=== PATIENT | male | born 1930 | race Caucasian/White ===

== ENCOUNTER → 2017-02-01 | Outpatient (CLI) | payer MEDICARE ==
[~2017-02-01] MED LIST: ALDACTONE25 MG PO; ARICEPT10 MG PO; BUMEX1 MG PO; CORDARONE,PACE200 MG PO; COREG25 MG PO; COUMADIN ** IA5 MG PO; COUMADIN5 MG PO; DEMADEX20 M1 PO; FERROUS SULFAT134 MG PO; LEVOTHROID (SY25 MCG PO; LEVOTHROID (SY50 MCG PO; LUTEIN20 MG PO; MAGNESIUM OXID250 MG PO; MULTIVITAMINS1 EAC1 PO; OXYGEN INH; PROTONIX40 MG PO; SENNA LAXATIVE1 EACH PO; TOPROL XL25 MG PO; VITAMIN D1000 UNIT PO; VITAMIN D31000 UNI1 PO; ZAROXOLYN2.5 MG PO; ZESTRIL2.5 MG PO
[2017-02-01 12:17] LABS: ANION GAP 11.7 (10.0-19.0); CALCIUM 8.7 mg/dL (8.5-10.5); CREATININE 1.7 mg/dL (0.6-1.3); POTASSIUM 3.7 mMol/L (3.7-5.1)
== END ==
LOC: LNHI 11:57
PROVIDERS: Physician Assistant
DX: I50.22 Chronic systolic (congestive) heart failure (principal); I48.2 Chronic atrial fibrillation; Z95.810 Presence of automatic (implantable) cardiac defibrillator

== ENCOUNTER 2017-04-01 16:43 | Inpatient (IN) | payer MEDICARE ==
[~2017-04-01] VITALS: Ht 177.8 cm; Wt 76.0 kg
--- NOTE | ~2017-04-01 | PUL ---
PATIENT'S NAME: GUIDO RESENDIZ [facility] AGE: 86 Y [address] ROOM: [address] [address] LOCATION: GPCU ADMIT DATE: 04/01/2017 Pulmonary DISCHARGE DATE: FAMILY PHYSICIAN: Dereje Abbott MD ATTENDING PHYSICIAN: Dereje Abbott NAME OF PROCEDURE: Overnight Pulse Oximetry DATE OF PROCEDURE: April 04 to April 05, 2017 REASON FOR EXAM: Nocturnal hypoxemia RESULTS: The test was performed on supplemental oxygen at 2 liters/minute. The patient had a brief period of time when he was on room air. The recording time and total valid sampling time were 8 hours, 43 minutes, and 12 seconds. The highest pulse was 76, lowest pulse was 66, with a mean pulse of 70. The highest SpO2 was 98%, lowest SpO2 was 88%, with a mean SpO2 of 93.9%. The patient spent 32 seconds with SpO2 less than 89%, representing 0.1% of the total sleep time. The desaturation event index was normal at 2.8. PHYSICIAN INTERPRETATION: The patient does not have evidence of significant nocturnal hypoxia while on supplemental oxygen at 2 liters/minute. MD JAKY SUAREZ/mariluz /[id number] dtt: 04/08/17 0730 , ALISON ONEAL dtd: 04/07/17 1124
--- NOTE | ~2017-04-01 | CON ---
PATIENT'S NAME: GUIDO RESENDIZ [facility] AGE: 86 Y [address] ROOM: [place] [address] LOCATION: GPCU ADMIT DATE: 04/01/2017 Consultation DISCHARGE DATE: FAMILY PHYSICIAN: Dereje Abbott MD ATTENDING PHYSICIAN: Dereje Abbott DATE OF CONSULTATION: 04/01/2017 REFERRING PHYSICIAN: Ilir Emmanuel REQUESTING PHYSICIAN: Dereje Abbott MD. REASON FOR CONSULTATION: Elevated BUN and creatinine and leg edema. HISTORY OF PRESENT ILLNESS: The patient is an 86-year-old white male with a history of chronic congestive heart failure from diastolic dysfunction. He also has a history of stage 4 chronic kidney disease. His creatinine was 1.7 in January 2017, went up to 2.1 on March 31, on April 01 second was 2.25. He gained 20 pounds since November. He was normally on torsemide 20 mg a day. Torsemide dose was increased to 40 mg a day. The patient is also lowered on his lisinopril 2.5 mg a day. He has chronic diastolic dysfunction of the heart. The patient was admitted to the hospital because of his significant leg edema. I have been asked to see him because of his elevated creatinine and edema. ALLERGIES: ALLERGIC TO CEPHALOSPORIN AND MORPHINE. MEDICATIONS: 1. Carvedilol 25 mg twice a day. 2. Aricept 10 mg every day. 3. Lutein 20 mg a day. 4. Magnesium oxide 250 mg every day. 5. Multivitamin once a day. 6. Torsemide 20 mg a day. 7. Warfarin as prescribed. 8. Oxygen 2 L by nasal cannula. 9. Cholecalciferol 2000 units once a day. 10. Synthroid 50 mcg a day. 11. Lisinopril 2.5 mg a day. PAST MEDICAL HISTORY: Stage 4 chronic kidney disease, chronic congestive heart failure from systolic dysfunction, hypothyroidism, hypovitaminosis D, leg edema, depressive illness, PATIENT'S NAME: GUIDO RESENDIZ [facility] AGE: 86 Y [address] ROOM: [place] [address] LOCATION: GPCU ADMIT DATE: 04/01/2017 Consultation DISCHARGE DATE: FAMILY PHYSICIAN: Dereje Abbott MD ATTENDING PHYSICIAN: Dereje Abbott and hypertension. PAST SURGICAL HISTORY: Prostatectomy, tonsillectomy, nasal polypectomy, hernia repair, hemorrhoid surgery, and cystoscopy with fulguration. SOCIAL HISTORY: He lives at home with his . He is . No history of alcohol use. FAMILY HISTORY: No family history of kidney disease or dialysis. REVIEW OF SYSTEMS: GENERAL: He denies any fever, chills, or rigors. HEENT: Denies any sore throat or sinus congestion. CARDIOVASCULAR: Denies any chest pain or dyspnea on exertion. RESPIRATORY: Denies any shortness of breath, cough, or wheezing. GI: Denies any abdominal pain, nausea, or vomiting. : Denies any dysuria or frequency. MUSCULOSKELETAL: No joint pain or swelling. SKIN: Denies any rash or pruritus. IMMUNOLOGIC: Denies any allergies or hay fever. EXTREMITIES: Did note a significant swelling of his lower extremities. PHYSICAL EXAMINATION: GENERAL APPEARANCE: An 86-year-old white male, lying in the hospital bed, not in acute distress. VITAL SIGNS: Temperature 98.3, pulse 71, systolic blood pressure 116 and diastolic 56, and respiratory rate 18. HEENT: Head normocephalic. Pupils are round and equal. Normal eyelids and conjunctivae. Oral cavity clear. Moist mucosa. Trachea central. No thyromegaly. No bruit. HEART: Sounds are audible in all the areas without any gallop or murmur. There is no pericardial rub. Pulses regular in rhythm. LUNGS: Bilaterally clear to auscultation. No intercostal retraction. ABDOMEN: Soft, nontender. Cannot palpate any liver or spleen. EXTREMITIES: He has no clubbing or cyanosis. The patient is 2+ leg edema. SKIN: No sign of vasculitis. LABORATORY DATA: Blood work shows hemoglobin 9.7, hematocrit 28.7, glucose 105, BUN 62, creatinine 2.0, sodium 139, potassium 3.7, chloride 103, bicarb 29, calcium 8.4, albumin 3.0, phosphorus of 3.4, and GFR of 32. ASSESSMENT: PATIENT'S NAME: GUIDO RESENDIZ [facility] AGE: 86 Y [address] ROOM: [place] [address] LOCATION: GPCU ADMIT DATE: 04/01/2017 Consultation DISCHARGE DATE: FAMILY PHYSICIAN: Dereje Abbott MD ATTENDING PHYSICIAN: Dereje Abbott 1. Acute on chronic kidney injury, most likely from decompensated congestive heart failure. His baseline creatinine was 1.7, now it is up to 2.2. 2. Increasing leg edema, probably from decompensated heart failure as well. 3. Chronic diastolic dysfunction of the heart. 4. Hypothyroidism. 5. Dementia. PLAN: I will hold his lisinopril and put him on 2 g sodium restricted diet as well as 1.5 L of oral free water restriction. Put him on Bumex 2 mg IV twice a day and we will monitor his urine output. We will check standing weight every morning and check renal function every day. I would like to thank Dr. Abbott for allowing me to participate in this patient's care. M IMTAIZ MD KEENAN MII/jasl /[id number] CC: Dereje Abbott MD d: 04/02/171953 t: 04/03/17 1129, CONSULTATION REPORT
--- NOTE | ~2017-04-01 | CON ---
PATIENT'S NAME: GUIDO BACA [facility] AGE: 86 Y [address] ROOM: [address] [place], [place] [address] LOCATION: GPCU ADMIT DATE: 04/01/2017 Consultation DISCHARGE DATE: FAMILY PHYSICIAN: Dereje Abbott MD ATTENDING PHYSICIAN: Dereje Abbott DATE OF CONSULTATION: 04/01/2017 REFERRING PHYSICIAN: Ilir Emmanuel Patient of Dr. Mejía. Dear Dr. Mejía: Thank you for asking me to see Mr. Baca, who is an 86-year-old male patient, who is admitted with worsening congestive heart failure with increasing ankle swelling and shortness of breath for the past 2 weeks. He is a fairly active person and he is retired. He usually goes down to the fitness center and does pushups, sit-ups, straight chest, and walks on a treadmill for 30-40 minutes, which he was able to do until 2 months back. Since then, his breathing has been to the point where he is unable to do anything. In February of this year, his LV lead was found to be not functioning, so he went down to [facility] in [place] and they repositioned his lead. Since then, his symptoms have not gotten any better. Currently, he is in functional class III, getting short of breath going up and down flights of stairs. He has noticed worsening ankle swelling and there is no paroxysmal nocturnal dyspnea even though he is mildly orthopneic. There is no chest pain. He denies lightheadedness, dizziness, syncope, presyncope, or palpitations. He has been having ankle swelling for a number of years. The patient has history of hypertension. He denies diabetes, elevated cholesterol, tobacco abuse, or family history of premature coronary artery disease. The patient denies PA. He denies rheumatic fever. He has had congestive heart failure for 8-9 years. His last ejection fraction according to the patient is about 41%. This has not by any means verified yet. His last echo and DUSTY were about 2 years old. There is a history of chronic atrial fibrillation on Coumadin therapy. MEDICATIONS: 1. Carvedilol 25 b.i.d. 2. Aricept 10 mg at bedtime. 3. Lutein 20 mg a day. 4. Magnesium oxide 250 mg a day. 5. Multivitamin once a day. PATIENT'S NAME: GUIDO BACA [facility] AGE: 86 Y [address] ROOM: [place] [address] LOCATION: GPCU ADMIT DATE: 04/01/2017 Consultation DISCHARGE DATE: FAMILY PHYSICIAN: Dereje Abbott MD ATTENDING PHYSICIAN: Dereje Abbott 6. Torsemide 20 mg every morning. 7. Warfarin 5 mg every morning. 8. Oxygen 2 L at bedtime. 9. Vitamin D3 2000 units a day. 10. Levothyroxine 50 mcg a day. 11. Lisinopril 2.5 mg a day. ALLERGIES: CEPHALOSPORIN AND MORPHINE. PAST MEDICAL HISTORY: 1. Anemia of chronic disease. 2. CKD. His creatinine was 1.7 sometime back, but yesterday after increasing his diuretic dosage, it has increased to 2.1 today. 3. Chronic diastolic congestive heart failure. 4. Gout. 5. Hypothyroidism. 6. Myelodysplastic syndrome. 7. History of prostate cancer. 8. Thrombocytopenia. 9. Cystoscopy with fulguration. 10. Hemorrhoid surgery. 11. Hernia repair. 12. Nasal polypectomy. 13. Prostatectomy. 14. Tonsillectomy. SOCIAL HISTORY: The patient is . He denies abusing alcohol. His appetite and weight are stable. Sleep is fair. FAMILY HISTORY: No premature coronary artery disease. REVIEW OF SYSTEMS: A 12-point review of systems reveal the following positives: 1. Allergies. 2. Corrective lenses. 3. History of DVT in the right leg 30 years ago, provoked at that time. 4. Dry cough. PHYSICAL EXAMINATION: GENERAL: The patient is now in no acute distress. VITAL SIGNS: Blood pressure is 110/70, heart rate is 70 and paced. The underlying rhythm is atrial fibrillation. PATIENT'S NAME: GUIDO BACA [facility] AGE: 86 Y [address] ROOM: [place] [address] LOCATION: GPCU ADMIT DATE: 04/01/2017 Consultation DISCHARGE DATE: FAMILY PHYSICIAN: Dereje Abbott MD ATTENDING PHYSICIAN: Dereje Abbott VITAL SIGNS: Respirations are 18, afebrile. HEENT: Normal. NECK: Supple with no JVD, thyromegaly, lymphadenopathy, or carotid bruit. PMI is not well located. HEART: First and second heart sounds are regular. There are no added sounds or murmurs. He has fairly coarse crackles bilaterally in his chest. ABDOMEN: Soft. EXTREMITIES: Reveal 2+ edema. He has moderate pulmonary hypertension by cardiac catheterization 2 years ago. ASSESSMENT: 1. History of chronic diastolic congestive heart failure. 2. Permanent BiV pacemaker placement. 3. Congestive heart failure, which is chronic. 4. Chronic atrial fibrillation. 5. Worsening shortness of breath and edema. 6. Coarse crackles in his lungs, all the way up to the mid lung alvarez. 7. Chronic kidney disease with a creatinine getting worse. 8. Edema and shortness of breath that are mentioned above. 9. Last catheterization in 2014 revealed minimal coronary artery disease. 10. Moderate pulmonary hypertension with pulmonary pressures in the 60s in the 2015 right heart catheterization. RECOMMENDATIONS: 1. We will check his chest x-ray. 2. We will do a pacemaker check. 3. Further management will be based on the findings and also get an echo before making final decisions about his medications. The patient has seen Dr. Correa and she will assume care in the morning hopefully. Again, I appreciate this opportunity to participate in the care of Mr. Baca. MD BRANDEN SULTANA/vania /[id number] d: 04/02/17 0056 t: 04/02/17 1838, CONSULTATION REPORT
--- NOTE | ~2017-04-01 | DS ---
PATIENT'S NAME: GUIDO RESENDIZ [facility] AGE: 86 Y [address] ROOM: [place] [address] LOCATION: GPCU ADMIT DATE: 04/01/2017 Discharge Summary DISCHARGE DATE: 04/07/2017 FAMILY PHYSICIAN: Jay Abbott MD ATTENDING PHYSICIAN: Jay Abbott DISCHARGE DIAGNOSES: 1. Qvfnj-qn-yomkcoh congestive heart failure, systolic. 2. Mjcow-lw-ypfwxkf renal failure, stage 4. 3. Hypertension. 4. Anemia. 5. Hypokalemia. 6. Nocturnal hypoxia. CONSULTS DURING ADMISSION: 1. Cardiology. 2. PT, OT. 3. Nephrology. PROCEDURES DURING ADMISSION: None. HOSPITAL COURSE: The patient is an 86-year-old male with oamfi-ax-knrixfs heart failure with kqizw-sy-zjnexgw renal failure, who was admitted to the hospital. The patient was started on Bumex drip. He was diuresed throughout his hospital stay. The patient's edema and breathing improved. The patient had a trending pulse oximetry done overnight and he maintained with 2 L nasal cannula oxygen. The patient had his potassium replaced. Throughout his hospital stay, his blood pressure remained stable as did his anemia. Upon discharge, his creatinine was 1.8. DISCHARGE CONDITION: Stable. DISPOSITION: Home. DISCHARGE MEDICATIONS: Please see list. DISCHARGE INSTRUCTIONS: I would like to recheck INR on April 12. The patient is to follow up with Cardiology and Renal as directed. The patient is to follow up with Dr. Abbott in approximately 2 weeks. JAY ABBOTT MD PATIENT'S NAME: GUIDO RESENDIZ [facility] AGE: 86 Y [address] ROOM: [place] [address] LOCATION: GPCU ADMIT DATE: 04/01/2017 Discharge Summary DISCHARGE DATE: 04/07/2017 FAMILY PHYSICIAN: Jay Abbott MD ATTENDING PHYSICIAN: Jay Abbott/vaina /[id number] d: 04/08/1714 t: 04/13/17 1609, DISCHARGE SUMMARY
[~2017-04-01 16:43] MED LIST changes: -BUMEX1 MG PO; -CORDARONE,PACE200 MG PO; -COUMADIN ** IA5 MG PO; -SENNA LAXATIVE1 EACH PO; -TOPROL XL25 MG PO; -VITAMIN D1000 UNIT PO; -ZAROXOLYN2.5 MG PO; -ZESTRIL2.5 MG PO
[2017-04-01] MEDS ORDERED: ZESTRIL2.5 MG PO (17:22)
[2017-04-01] MEDS ORDERED: VITAMIN D1000 UNIT PO (17:24)
[2017-04-02 03:43] LABS: BASOPHIL % 0.3 %; EOSINOPHIL # 0.2 K/uL (0.0-0.5); EOSINOPHIL % 3.8 %; HEMATOCRIT 28.7 % (33.0-50.0); HEMOGLOBIN 9.7 g/dL (11.0-16.0); IMMATURE GRANULOCYTE % 0.5 %; LYMPHOCYTE # 0.8 K/uL (0.8-4.0); LYMPHOCYTE % 20.3 %; MCH 32.4 pg (27.0-34.0); MCHC 33.8 gm/dL (32.0-36.5); MONOCYTE # 0.6 K/uL (0.0-1.0); MONOCYTE % 15.2 %; MPV 10.4 fl (9.4-12.4); NEUTROPHIL # (ANC) 2.4 K/uL (1.4-9.0); NEUTROPHIL % 59.9 %; NRBC % 0 /100WBC (0-0.00); PLATELET COUNT 93 K/uL (150-450); RBC 2.99 M/uL (3.50-5.50); RDW-CV 13.6 % (11.9-14.6)
[2017-04-02 03:56] LABS: INR - (THERAPEUTIC) 2.93 (0.92-1.07); PROTIME 31.1 SECONDS (9.8-11.4)
[2017-04-02 04:10] LABS: ANION GAP 10.7 (10.0-19.0); CALCIUM 8.4 mg/dL (8.5-10.5); PHOSPHORUS 3.4 mg/dL (2.5-4.9); POTASSIUM 3.7 mMol/L (3.7-5.1)
[2017-04-02] MEDS ORDERED: COUMADIN ** IA5 MG PO (08:19)
[2017-04-03 05:34] LABS: BASOPHIL % 0.2 %; EOSINOPHIL % 0.3 %; HEMATOCRIT 30.6 % (33.0-50.0); HEMOGLOBIN 10.3 g/dL (11.0-16.0); IMMATURE GRANULOCYTE % 0.3 %; LYMPHOCYTE # 0.8 K/uL (0.8-4.0); LYMPHOCYTE % 12.6 %; MCH 32.2 pg (27.0-34.0); MCHC 33.7 gm/dL (32.0-36.5); MCV 95.6 fl (83.0-98.0); MONOCYTE # 0.9 K/uL (0.0-1.0); MONOCYTE % 15.4 %; MPV 10.7 fl (9.4-12.4); NEUTROPHIL # (ANC) 4.3 K/uL (1.4-9.0); NEUTROPHIL % 71.2 %; NRBC % 0 /100WBC (0-0.00); PLATELET COUNT 94 K/uL (150-450); RDW-CV 13.6 % (11.9-14.6); WBC 6.1 K/uL (4.0-11.0)
[2017-04-03 05:45] LABS: ALBUMIN 3.1 gm/dL (3.5-5.0); ANION GAP 12.4 (10.0-19.0); CALCIUM 8.3 mg/dL (8.5-10.5); PHOSPHORUS 3.2 mg/dL (2.5-4.9); POTASSIUM 3.4 mMol/L (3.7-5.1)
[2017-04-03 05:49] LABS: INR - (THERAPEUTIC) 2.41 (0.92-1.07); PROTIME 25.5 SECONDS (9.8-11.4)
[2017-04-04 04:29] LABS: BASOPHIL % 0.3 %; EOSINOPHIL % 0.3 %; HEMATOCRIT 28.4 % (33.0-50.0); HEMOGLOBIN 9.5 g/dL (11.0-16.0); IMMATURE GRANULOCYTE % 0.6 %; LYMPHOCYTE # 0.8 K/uL (0.8-4.0); LYMPHOCYTE % 11.7 %; MCH 32.3 pg (27.0-34.0); MCHC 33.5 gm/dL (32.0-36.5); MCV 96.6 fl (83.0-98.0); MONOCYTE # 0.8 K/uL (0.0-1.0); MONOCYTE % 10.9 %; MPV 10.4 fl (9.4-12.4); NEUTROPHIL # (ANC) 5.3 K/uL (1.4-9.0); NEUTROPHIL % 76.2 %; NRBC % 0 /100WBC (0-0.00); PLATELET COUNT 91 K/uL (150-450); RBC 2.94 M/uL (3.50-5.50); RDW-CV 13.8 % (11.9-14.6)
[2017-04-04 04:37] LABS: INR - (THERAPEUTIC) 2.54 (0.92-1.07); PROTIME 26.9 SECONDS (9.8-11.4)
[2017-04-04 04:45] LABS: ALBUMIN 2.6 gm/dL (3.5-5.0); ANION GAP 10.4 (10.0-19.0); CREATININE 2.1 mg/dL (0.6-1.3); PHOSPHORUS 3.1 mg/dL (2.5-4.9); POTASSIUM 3.4 mMol/L (3.7-5.1)
[2017-04-04 10:26] LABS: BILIRUBIN URINE NEGATIVE (NEGATIVE); BLOOD URINE 250 /UL (NEGATIVE); COLOR URINE RED (YELLOW); GLUCOSE URINE NEGATIVE (NEGATIVE); KETONE URINE NEGATIVE (NEGATIVE); LEUKOCYTES URINE 100 /UL (NEGATIVE); NITRITE URINE NEGATIVE (NEGATIVE); PROTEIN URINE 30 mg/dL (NEGATIVE); TURBIDITY URINE 1+ (CLEAR); UROBILINOGEN URINE NORMAL (NORMAL)
[2017-04-04 10:33] LABS: RBC URINE PACKED FIELD #/HPF (NEGATIVE); WBC URINE 0-2 #/HPF (NEGATIVE)
[2017-04-04 10:34] LABS: BACTERIA URINE NEGATIVE (NEGATIVE); EPITHELIAL URINE NEGATIVE #/HPF (NEGATIVE)
[2017-04-05 04:43] LABS: BASOPHIL % 0.3 %; EOSINOPHIL % 0.4 %; HEMATOCRIT 28.7 % (33.0-50.0); HEMOGLOBIN 9.3 g/dL (11.0-16.0); IMMATURE GRANULOCYTE % 0.6 %; LYMPHOCYTE # 0.9 K/uL (0.8-4.0); LYMPHOCYTE % 12.6 %; MCH 31.4 pg (27.0-34.0); MCHC 32.4 gm/dL (32.0-36.5); MONOCYTE # 0.8 K/uL (0.0-1.0); MONOCYTE % 10.5 %; MPV 10.1 fl (9.4-12.4); NEUTROPHIL # (ANC) 5.4 K/uL (1.4-9.0); NEUTROPHIL % 75.6 %; NRBC % 0 /100WBC (0-0.00); PLATELET COUNT 104 K/uL (150-450); RBC 2.96 M/uL (3.50-5.50); RDW-CV 13.9 % (11.9-14.6); WBC 7.2 K/uL (4.0-11.0)
[2017-04-05 04:54] LABS: INR - (THERAPEUTIC) 2.86 (0.92-1.07); PROTIME 30.4 SECONDS (9.8-11.4)
[2017-04-05 05:01] LABS: ALBUMIN 2.6 gm/dL (3.5-5.0); ANION GAP 10.4 (10.0-19.0); CALCIUM 8.3 mg/dL (8.5-10.5); CREATININE 1.9 mg/dL (0.6-1.3); PHOSPHORUS 3.8 mg/dL (2.5-4.9); POTASSIUM 3.4 mMol/L (3.7-5.1)
[2017-04-06 04:47] LABS: BASOPHIL % 0.2 %; EOSINOPHIL # 0.1 K/uL (0.0-0.5); EOSINOPHIL % 1.2 %; HEMATOCRIT 29.3 % (33.0-50.0); HEMOGLOBIN 9.6 g/dL (11.0-16.0); IMMATURE GRANULOCYTE % 0.3 %; LYMPHOCYTE # 0.8 K/uL (0.8-4.0); LYMPHOCYTE % 13.7 %; MCH 31.9 pg (27.0-34.0); MCHC 32.8 gm/dL (32.0-36.5); MCV 97.3 fl (83.0-98.0); MONOCYTE # 0.7 K/uL (0.0-1.0); MONOCYTE % 11.4 %; MPV 10.4 fl (9.4-12.4); NEUTROPHIL # (ANC) 4.2 K/uL (1.4-9.0); NEUTROPHIL % 73.2 %; NRBC % 0 /100WBC (0-0.00); PLATELET COUNT 114 K/uL (150-450); RBC 3.01 M/uL (3.50-5.50); RDW-CV 13.8 % (11.9-14.6); WBC 5.8 K/uL (4.0-11.0)
[2017-04-06 05:08] LABS: ALBUMIN 2.6 gm/dL (3.5-5.0); ANION GAP 9.4 (10.0-19.0); CALCIUM 8.1 mg/dL (8.5-10.5); CREATININE 1.9 mg/dL (0.6-1.3); PHOSPHORUS 3.1 mg/dL (2.5-4.9); POTASSIUM 3.4 mMol/L (3.7-5.1)
[2017-04-06 05:11] LABS: INR - (THERAPEUTIC) 3.83 (0.92-1.07); PROTIME 40.8 SECONDS (9.8-11.4)
[2017-04-07 03:41] LABS: BASOPHIL % 0.2 %; EOSINOPHIL # 0.1 K/uL (0.0-0.5); EOSINOPHIL % 1.1 %; HEMATOCRIT 30.1 % (33.0-50.0); HEMOGLOBIN 9.9 g/dL (11.0-16.0); IMMATURE GRANULOCYTE % 0.6 %; LYMPHOCYTE # 0.8 K/uL (0.8-4.0); LYMPHOCYTE % 14.5 %; MCH 31.6 pg (27.0-34.0); MCHC 32.9 gm/dL (32.0-36.5); MCV 96.2 fl (83.0-98.0); MONOCYTE # 0.7 K/uL (0.0-1.0); MONOCYTE % 14.1 %; MPV 10.1 fl (9.4-12.4); NEUTROPHIL # (ANC) 3.6 K/uL (1.4-9.0); NEUTROPHIL % 69.5 %; NRBC % 0 /100WBC (0-0.00); PLATELET COUNT 132 K/uL (150-450); RBC 3.13 M/uL (3.50-5.50); RDW-CV 13.6 % (11.9-14.6); WBC 5.2 K/uL (4.0-11.0)
[2017-04-07 03:57] LABS: INR - (THERAPEUTIC) 3.81 (0.92-1.07); PROTIME 40.5 SECONDS (9.8-11.4)
[2017-04-07 04:07] LABS: ALBUMIN 2.7 gm/dL (3.5-5.0); ANION GAP 10.6 (10.0-19.0); CALCIUM 8.3 mg/dL (8.5-10.5); CREATININE 1.8 mg/dL (0.6-1.3); PHOSPHORUS 3.2 mg/dL (2.5-4.9); POTASSIUM 3.6 mMol/L (3.7-5.1)
[2017-04-07] MEDS ORDERED: BUMEX1 MG PO (11:41)
== END 2017-04-07 13:55 | disposition disaster alternative care site (69) | DRG 291 ==
LOC: GPCU 16:43
PROVIDERS: Internal Medicine; Internal Medicine Nephrology; ADMIT Family Medicine
DX: I13.0 Hypertensive heart and chronic kidney disease with heart failure and stage 1 through stage 4 chronic kidney disease, or unspecified chronic kidney disease (principal); I50.23 Acute on chronic systolic (congestive) heart failure; N18.4 Chronic kidney disease, stage 4 (severe); D69.6 Thrombocytopenia, unspecified; N17.9 Acute kidney failure, unspecified; I48.2 Chronic atrial fibrillation; F03.90 Unspecified dementia, unspecified severity, without behavioral disturbance, psychotic disturbance, mood disturbance, and anxiety; I25.5 Ischemic cardiomyopathy; N39.0 Urinary tract infection, site not specified; I25.10 Atherosclerotic heart disease of native coronary artery without angina pectoris; I50.32 Chronic diastolic (congestive) heart failure; D63.1 Anemia in chronic kidney disease; E87.6 Hypokalemia; G47.33 Obstructive sleep apnea (adult) (pediatric); E03.4 Atrophy of thyroid (acquired); Z79.01 Long term (current) use of anticoagulants; Z86.010 Personal history of colon polyps; Z95.0 Presence of cardiac pacemaker; Z85.46 Personal history of malignant neoplasm of prostate; Z86.718 Personal history of other venous thrombosis and embolism

== ENCOUNTER 2017-04-30 17:46 | Inpatient (IN) | payer MEDICARE ==
[~2017-04-30] VITALS: Ht 177.8 cm; Wt 74.8 kg
--- NOTE | ~2017-04-30 | CON ---
PATIENT'S NAME: GUIDO RESENDIZ [facility] AGE: 86 Y [address] ROOM: [address] [place] [id number] LOCATION: GICU ADMIT DATE: 05/03/2017 Consultation DISCHARGE DATE: FAMILY PHYSICIAN: Dereje Abbott MD ATTENDING PHYSICIAN: GUCCI MESSINA DATE OF CONSULTATION: 05/01/2017 REFERRING PHYSICIAN: Ilir Emmanuel REFERRING PHYSICIAN: Dereje Abbott MD / Hyun Spears MD REASON FOR CONSULTATION: CKD stage 3, admitted with decompensated heart failure and fluid overload. HISTORY OF PRESENT ILLNESS: An 86-year-old male with history of chronic congestive heart failure from diastolic and systolic dysfunction with recent admission to [place] with decompensation, presented with similar complaints with shortness of breath especially on exertion, which has worsened over the last few days along with significant dependent edema which has also gotten worse over the last few days. His body weight has went up from 167 pounds and last discharged to 183 pounds on admission, which has improved somewhat to 177 pounds today. Creatinine in January was 1.5 which went up to 2.5 during the last hospital admission before improving back to 1.8-1.9 range. He was in that range on admission. Today on dialysis, his creatinine improved somewhat further to 1.5 range. He has significantly elevated ProBNP, which was 15,000 on admission, went down to 13,000 today. The patient, although walking up the hallway, complained of less shortness of breath, but still continues to have significant lower extremity edema and some presacral edema. He also has decreased air entry in bilateral bases along with few crackles in lungs. He claims that he watches his diet and he watches his salt and water intake. However, as mentioned above, his body weight has been significantly worse than before. Notably, he also has some diarrhea for the last few days which is improving since hospital admission. Since hospitalization for strict intake and output, the patient has a Chaudhry catheter placed since last night. The patient started to have some hematuria, however, slowly clearing up the urine in the Chaudhry catheter tube is much more clearer than what is in the bag. The patient has good urine output for now. REVIEW OF SYSTEMS: GENERAL: No fever. No chills or rigor. HEENT: No sore throat. No sinus congestion. CVS: No chest pain, but significant shortness of breath, significant lower extremity edema which is getting worse for the last few days. RESPIRATORY: No cough, but shortness of breath on exertion. GENITOURINARY: No pain with urination. No increased frequency. No nocturia. GASTROINTESTINAL: No abdominal pain. No abdominal distention. No nausea or vomiting. NEUROLOGIC: No weakness. No seizures. SKIN: No rash. No itching. ALLERGIES: No seasonal allergy. No hayfever. ENDOCRINE: No heat intolerance. No cold intolerance. PSYCHIATRIC: No sadness. No crying spells. No history of panic attack.PATIENT'S NAME: GUIDO RESENDIZ [facility] AGE: 86 Y [address] ROOM: [address] [place], [place] [address] LOCATION: [facility] ADMIT DATE: 05/03/2017 Consultation DISCHARGE DATE: FAMILY PHYSICIAN: Dereje Abbott MD ATTENDING PHYSICIAN: GUCCI MESSINA PAST MEDICAL HISTORY: Combined systolic and diastolic heart failure. Ejection fraction 40% with diastolic dysfunction, atrial fibrillation on Coumadin, hypothyroidism, CKD stage 3-4, prostate cancer status post prostatectomy, hypertension status post biventricular AICD implanted in February 2017, nonobstructive coronary artery disease on most recent cardiac catheterization. PAST SURGICAL HISTORY: 1. Prostatectomy. 2. Pacemaker and AICD implantation. SOCIAL HISTORY: Denies any smoking, alcohol, or illicit drug use. Lives with his . FAMILY HISTORY: Mother from liver cancer at old age. Father had some kind of heart problem that he could not remember. ALLERGIES: PANTOPRAZOLE, CEPHALOSPORIN, MORPHINE, IODINE, AND BETADINE. HOME MEDICATIONS: 1. Coreg 25 mg p.o. b.i.d. 2. Aricept 10 mg p.o. at bedtime. 3. Lutein 20 mg p.o. Wednesday, Wednesday, and Wednesday. 4. Magnesium oxide 250 mg p.o. in the morning. 5. Multivitamin one tablet p.o. daily. 6. Warfarin sodium 5 mg p.o. 5 days a week and 7.5 mg 2 days a week. 7. Cholecalciferol 500 units p.o. b.i.d. 8. Levothyroxine 50 mcg p.o. daily. 9. Bumex 2 mg p.o. daily. 10. Metolazone 2.5 mg p.o. daily. PHYSICAL EXAMINATION: VITAL SIGNS: Blood pressure is 130/50, pulse 70, respiratory rate 14 to 16. Currently afebrile, saturating at 92% to 94% on room air. GENERAL: Not in apparent distress. HEAD: Moist mucous membranes. Bilateral PERRLA, EOMI. NECK: No JVD, thyromegaly or lymphadenopathy. RESPIRATORY: Decreased breath sounds at bilateral bases with few crackles. CVS: S1-S2 positive. Irregular rate and rhythm. CHEST: Bilateral air entry equal. No wheeze or rales. ABDOMEN: Soft, nontender, nondistended. Bowel sounds present. EXTREMITIES: Peripheral pulse positive, 2 to 3+ peripheral edema. Sacral edema positive. MUSCULOSKELETAL: No limitation of range of motion. SKIN: No pallor, cyanosis, icterus. [employer]: Alert and oriented x3. No gross findings.PATIENT'S NAME: GUIDO RESENDIZ [facility] AGE: 86 Y [address] ROOM: [place] [address] LOCATION: [facility] ADMIT DATE: 05/03/2017 Consultation DISCHARGE DATE: FAMILY PHYSICIAN: Dereje Abbott MD ATTENDING PHYSICIAN: GUCCI MESSINA LABORATORY DATA: ProBNP 13,065. CBC: Hemoglobin 9, WBC 3.8, and platelets 96. Chemistry: Serum sodium was 134 on admission, now is 136; potassium 2.9 on admission, now 2.8; chloride 88 on admission, now 92; bicarbonate 25 on admission, now 38; BUN 48 on admission, now 45; creatinine 1.7 on admission, now 1.5; glucose 190 on admission, now 88; calcium 8.3 on admission, now 8.2. Total protein 7.4, albumin 3.1, magnesium 2.3, INR 2.4. Urinalysis: Specific gravity 1.005, pH 7, blood 50, wbc negative, 20 to 50 rbc's, 0 to 2 epithelial cells, negative for bacteria, negative for protein, negative for glucose and ketone. ASSESSMENT AND PLAN: 1. Decompensated combined heart failure with fluid overload. Currently on Bumex 2 mg IV b.i.d. We will continue that. Hold metolazone for now in context of hyponatremia. We will restart it later. The patient will be put on 1.2 L fluid restriction per day. Daily standing weight and strict intake and output. We will monitor the renal panel closely with daily renal panel. Cardiology is on board. 2. Chronic atrial fibrillation. Currently rate controlled and on long-term anticoagulation. INR is in the therapeutic range. Defer further to primary team and Cardiology. 3. Hypervolemic hyponatremia, improving with diuresis. So, we will hold back metolazone for now. May restart it at a later date. 4. Hypokalemia possibly diuretic induced, getting 40 mEq p.o. today and we will repeat labs afterwards and we may need to give further potassium supplementation in the future. 5. Mild hematuria possibly Chaudhry related/traumatic insertion in which she is improving now, has minimal clots, good urine output for now. Monitor for now. No need for Urology consultation at this point. However, if urine output drops, we need to flush the Chaudhry immediately and may call Urology consultation for CBI. Thank you for allowing me to participate in this patient's care. We will closely monitor the patient's progress along with you. DELGADO ALLIE URIBE MD /modl /[id number] CC: Hyun Spears MD d: 05/01/17 1716 t: 05/05/17 1356, CONSULTATION REPORT
--- NOTE | ~2017-04-30 | DS ---
PATIENT'S NAME: GUIDO RESENDIZ [facility] AGE: 86 Y [address] ROOM: [place] [address] LOCATION: GPCU ADMIT DATE: 05/03/2017 Discharge Summary DISCHARGE DATE: 05/10/2017 FAMILY PHYSICIAN: Dereje Abbott MD ATTENDING PHYSICIAN: Angelita To DISCHARGE DIAGNOSES: 1. Acute hypoxic respiratory failure. 2. Acute on chronic combined diastolic and systolic heart failure. 3. Acute on chronic kidney disease level 3. 4. Pulseless electrical activity with cardiac arrest, status post cardiopulmonary resuscitation code. 5. Chronic atrial fibrillation. 6. Subtherapeutic INR. 7. Anemia of chronic disease. 8. Essential hypertension. 9. Hypothyroidism. 10. Bilateral pleural effusions. PROCEDURES: 1. He had an IJ catheter placed in case he needed dialysis on the right side. 2. He had bilateral pleural taps for pleural effusion. 3. He had CPR with resuscitation. REASON FOR ADMISSION: The patient was admitted with increasing shortness of breath, fatigue, hypoxia. It was surely after admission that he coded him and was resuscitated. LABORATORY DATA: Last sodium 139 with potassium 3.6. His potassium went as low as 3, but has rebounded. Blood sugars were benign. Last creatinine was 3.1 with a BUN of 78, down from 83. Creatinine went as high as 3.6, but again has improved. Albumin was low at 2.8. The calcium remained normal at 8.7. Liver function testing was normal. ProBNP on May 01, 2017, was 13,065. BNP was 189. B12 and folate were both therapeutic and supratherapeutic respectively. TSH was elevated slightly at 5.22 in September, it was still elevated at 4.27 on April 30, 2017. Last white count was 5.1 with hemoglobin of 9 and platelets of 138. His MCV was normal. He had a low hemoglobin of 8.3, but was stable at 9 since then. X-RAYS: His cardiac silhouette is chronically enlarged. His bilateral effusion on the right was markedly decreased. After tap, the left recurred, but clinically, he has been much better since the tap. DISCHARGE MEDICATIONS: Per nursing med recon form. PATIENT'S NAME: GUIDO RESENDIZ [facility] AGE: 86 Y [address] ROOM: [address] [address] LOCATION: GPCU ADMIT DATE: 05/03/2017 Discharge Summary DISCHARGE DATE: 05/10/2017 FAMILY PHYSICIAN: Dereje Abbott MD ATTENDING PHYSICIAN: Angelita To DIET: Low-sodium with 1500 mL fluid restriction. He is to weigh himself every day and if he goes up more than 3 pounds, he is to get in touch with Cardiology immediately and I am sure he will be instructed to double his diuretic at that point. ACTIVITIES: As tolerated. FOLLOWUP: With Cardiology in [address] Matamoros at Dr. Matamoros's discretion for Nephrology. Discharge took greater than 30 minutes and reference is made to my note. MD SHELTON WOOD/modl /[id number] d: 05/11/17201 t: 05/11/172120, DISCHARGE SUMMARY
--- NOTE | ~2017-04-30 | OR ---
PATIENT'S NAME: GUIDO BACA [facility] AGE: 86 Y [address] ROOM: [place] [address] LOCATION: GICU ADMIT DATE: 05/03/2017 OR/Procedure Report DISCHARGE DATE: FAMILY PHYSICIAN: Dereje Abbott MD ATTENDING PHYSICIAN: GUCCI MESSINA SURGEON: Jeremiah Bolton DO SENIOR SOURCING MANAGER: DATE OF PROCEDURE: 05/03/2017 REFERRING PHYSICIAN: Geeta Nobles MD. PREOPERATIVE DIAGNOSIS: Acute renal failure with need for hemodialysis. POSTOPERATIVE DIAGNOSIS: Acute renal failure with need for hemodialysis. PROCEDURE: Insertion of right internal jugular vein temporary hemodialysis catheter. BRIEF HISTORY: Mr. Baca is an 86-year-old white male with the above-noted diagnosis. DESCRIPTION OF PROCEDURE: Informed consent has been obtained. The right internal jugular vein was identified with ultrasound and marked. This bernice was then sterilely prepped and draped. The patient was in a supine position. The internal jugular vein was accessed without difficulty after appropriately anesthetizing area 1% lidocaine. A guidewire fed without resistance. A stab incision was made at the base of the needle, and the needle was withdrawn. Two soft tissue dilators were placed serially over the guidewire and removed and then the triple-lumen temporary hemodialysis catheter was placed over the guidewire, and the guidewire was removed. Each lumen aspirated easily for dark venous blood and was then flushed with sterile saline. The 2 dialysis lumens were then locked with heparin. It was secured into position with a 2-0 nylon and a sterile dressing was applied. A chest x-ray is pending for placement. JEREMIAH BOLTON DO MCB/modl /[id number] d: 05/03/177 t: 05/04/17 0313, OPERATIVE SUMMARY
--- NOTE | ~2017-04-30 | ECHO ---
Transthoracic Echocardiography Report (TTE) Demographics Patient Name GUIDO RESENDIZ Date of Study 05/01/2017 Patient Number [id number] Visit Number [id number] Date of 1930 Room Number G6324 Gender Male Number Age 86 year(s) Referring Milena Roth Playback Operator Sherie Murillo RVT, Physician RDCS Physician Interpreting [place] Angelita Wax Pourer Physician MD Alesia Gtz MD Supervising Ordering [place] Angelita MD/MLP Physician Nurse Stress Engine Repairer Production Conclusions Summary The estimated left ventricular ejection fraction is 35%. Mild concentric left ventricular hypertrophy. Diastolic assessment reveals Grade III restrictive diastolic dysfunction. The interventricular septum is flattened which is consistent with right ventricular pressure / and or volume overload. Moderately dilated right ventricle. Mildly reduced right ventricular function. The left atrium is severely dilated. The right atrium is severely dilated. Dilated IVC with poor inspiratory collapse consistent with elevated RA pressure. Mild thickening of the mitral valve leaflets. Mild mitral regurgitation by color Doppler. Severe tricuspid regurgitation by color Doppler. There is severe pulmonary hypertension. The pulmonary pressure (RVSP) is 72 mmHg. Moderate pulmonic valve regurgitation by color Doppler. Procedure Type of Study TTE procedure:2D Echocardiogram. Procedure Date Date: 05/01/2017 Start: 06:24 AM Study Location: Inpatient Portable Technical Quality: Good visualization Indications:CHF and Shortness of breath. Appropriate Use Criteria: 8 Patient Status: Routine Rhythm: Paced HR: 71 bpm BP: 117/56 mmHg Allergies - Morphine. - Morphine. - Morphine:(severe hypotension). M-Mode/2D Measurements LV Diastolic Dimension: 5.86 cm LV Systolic Dimension: 4.99 cm LV Septum Diastolic: 1.31 cm LV PW Diastolic: 1.12 cm AO Root Dimension: 3.2 cm Cardiac Output: 2.59 l/min AV Cusp Separation: 2.2 cm RV Diastolic Dimension: 4.73 cm LA volume: 187 ml LVOT: 2 cm RV Base: 5.05 cm LVOT VTI: 11.6 cm RV Mid: 2.78 cm LV Stroke volume: 36.42 ml TAPSE: 1.63 cm TDI-S': 11.1 cm/s Doppler Measurements AV Peak Velocity: 1.01 m/s MV Peak E-Wave: 0.77 m/s AV Peak Gradient: 4.08 mmHg MV Peak A-Wave: 0.2 m/s AV Mean Gradient: 2 mmHg MV E/A Ratio: 3.87 LVOT Peak Velocity: 0.54 m/s MV P1/2t: 67 msec TR Gradient:51.55 mmHg PV Peak Velocity: 0.68 m/s Estimated RAP:20 mmHg PV Peak Gradient: 1.86 mmHg Estimated RVSP: 72 mmHg Estimated PASP: 71.55 mmHg E' Septal Velocity: 0.09 m/s A' Septal Velocity: 0.19 m/s E' Lateral Velocity: 0.09 m/s A' Lateral Velocity: 0.05 m/s Findings Left Ventricle Mild concentric left ventricular hypertrophy. Diastolic assessment reveals Grade III restrictive diastolic dysfunction. The interventricular septum is flattened which is consistent with right ventricular pressure / and or volume overload. The left ventricle is borderline dilated . Right Ventricle Moderately dilated right ventricle. Mildly reduced right ventricular function. Device lead noted in the right ventricle. Left Atrium The left atrium is severely dilated. There is no evidence of patent foramen ovale or atrial septal defect by color Doppler. Right Atrium The right atrium is severely dilated. Dilated IVC with poor inspiratory collapse consistent with elevated RA pressure. Mitral Valve Mild thickening of the mitral valve leaflets. Mild mitral regurgitation by color Doppler. Borderline prolapse of the mitral valve. Aortic Valve The aortic valve is mildly sclerotic. There is trivial aortic regurgitation by color Doppler. Tricuspid Valve Severe tricuspid regurgitation by color Doppler. There is severe pulmonary hypertension. The pulmonary pressure (RVSP) is 72 mmHg. Pulmonic Valve Moderate pulmonic valve regurgitation by color Doppler. Pericardial Effusion No evidence of pericardial effusion. Miscellaneous Visualized portions of the aortic root and ascending aorta appear normal in size. IVC is severely dilated. Systolic reversal of flow in the hepatic veins suggests severe tricuspid regurgitation. Pleural Effusion No evidence of pleural effusion. Contractility Score LV regional wall motion:(0-Non visualized 1-Normal 2-Hypokinesis 3-Akinesis 4-Dyskinesis 5-Aneurysm) Signature dtt: Jeane Dumas dtd: 05/01/17 0624 Physician Self Edit
--- NOTE | ~2017-04-30 | HP ---
PATIENT'S NAME: GUIDO RESENDIZ [facility] AGE: 86 Y [address] ROOM: G6324 [place], [place] [address] LOCATION: GPCU ADMIT DATE: 04/30/2017 History & Physical DISCHARGE DATE: FAMILY PHYSICIAN: Dereje Abbott MD ATTENDING PHYSICIAN: GUCCI MESSINA DATE OF SERVICE: CHIEF COMPLAINT: Worsening bilateral lower extremity edema and chronic exertional dyspnea. HISTORY OF PRESENT ILLNESS: This is an 86-year-old, male who says that he chronically has edema in both lower extremities as well as exertional dyspnea. He says that his exertional dyspnea has not worsened that much, but his leg edema in both lower extremities has gotten worse in the last few days. He has also gained weight at home. He says that he watches diet and takes medication as directed and very compliant, but he is still gaining weight. He says he also watches oral intake of fluids as well. On April 07, 2017, his weight was 167 pounds and today is 183 pounds. In addition, he also complains of difficulty urinating in the last few days but worse today, but he denies any dysuria or hematuria. He has a history of prostate cancer, status post prostatectomy in the past. He does complain of some loose stools, just today, about 4-5 episodes. He denies any chest pain or any other symptoms. Today, he was seen in the Cardiology Clinic with Dr. Goldstein, the patient's primary windows server engineer, and was found to have weight gain and worsening leg edema as well as hypokalemia, and the patient was sent over here for admission for further care. REVIEW OF THE SYSTEMS: As mentioned in the history of present illness. All other systems were reviewed and were negative except those mentioned in the history of present illness. PAST MEDICAL HISTORY: 1. Combined systolic and diastolic heart failure. Last echo from the medical records showed in February 2017 with an EF of 40%. 2. History of atrial fibrillation, on Coumadin. 3. Hypothyroidism. 4. CKD, stage 3. 5. Prostate cancer, status post prostatectomy. 6. Hypertension. 7. Status post biventricular AICD, implanted in February 2017. 8. Most recent cardiac catheterization per medical record was in April 2015, showed nonobstructive CAD. PATIENT'S NAME: GUIDO RESENDIZ [facility] AGE: 86 Y [address] ROOM: G6324 [place] [address] [facility] ADMIT DATE: 04/30/2017 History & Physical DISCHARGE DATE: FAMILY PHYSICIAN: Dereje Abbott MD ATTENDING PHYSICIAN: GUCCI MESSINA ALLERGIES: PANTOPRAZOLE CAUSES MUSCLE SPASM; CEPHALOSPORIN, NO REACTION; MORPHINE CAUSES ANAPHYLAXIS; IODINE CAUSES RASH; AND BETADINE, UNKNOWN REACTION. HOME MEDICATIONS: Currently is being reconciled. SOCIAL HISTORY: The patient denies any cigarette or alcohol or illegal drug use. FAMILY HISTORY: Mother from liver cancer at old age. Father had some kind of heart problem that he could not remember. PAST SURGICAL HISTORY: 1. Prostatectomy. 2. Pacemaker and AICD implantation. PHYSICAL EXAMINATION: VITAL SIGNS: At the time of evaluation, temperature 97.6, heart rate 73, respirations 14, blood pressure 135/86, and saturation 94% on room air. GENERAL APPEARANCE: Alert and oriented x3, in no acute distress. HEENT: Pupils equally round and reactive to light. Extraocular muscles intact. Anicteric sclerae. Nasal turbinates are normal bilaterally. Moist oral mucosa. NECK: No mass. Does have JVD. CARDIOVASCULAR: Regular rate and rhythm. No murmur, no rubs, no gallops. Normal S1, S2. RESPIRATORY: Very faint bibasilar crackles. No rales, no rhonchi, no wheezing. ABDOMEN: Soft, nontender, nondistended, bowel sounds present, and no mass. EXTREMITIES: He has bilateral lower extremity edema on palpation. SKIN: No ulcer, no rash, no cyanosis. NEUROLOGICAL: Grossly nonfocal. LABORATORY DATA: ProBNP 76718. White blood cells 5.2, hemoglobin 9.9, hematocrit 30.1, MCV 96.2, and platelets 132. Glucose 119, BUN 48, creatinine 1.7, sodium 134, potassium 2.9, chloride 88, CO2 27. Calcium 8.3, total protein 7.4, albumin 3.1, AST 29, ALT 24, alkaline phosphatase 179, total bilirubin 1.3. GFR 36. INR pending. IMAGING STUDIES: Chest x-ray: Currently has been ordered. PATIENT'S NAME: GUIDO RESENDIZ [facility] AGE: 86 Y [address] ROOM: G6324 [place] [address] [facility] ADMIT DATE: 04/30/2017 History & Physical DISCHARGE DATE: FAMILY PHYSICIAN: Dereje Abbott MD ATTENDING PHYSICIAN: GUCCI MESSINA EKG: On admission at 3 p.m. showed paced rhythm, heart rate 73. ASSESSMENT AND PLAN: 1. Acute on chronic combined congestive heart failure: Follow Dr. Goldstein's order which has already been written in the chart. The plan will be IV Bumex 2 mg twice a day, he will be getting the first dose tonight. Oxygen nasal cannula, titrate for saturation more than 94%. Fluid restriction to less than 1 L per day. Daily weight and strict in's and out's. Chaudhry insertion for strict in's and out's. We will also be checking orthostatic vital signs and document in the chart. He will also have an echocardiogram again in the morning. Further plan will depend on clinical course and also per Cardiology. 2. Chronic kidney disease, stage 3: Not far off from his baseline since last discharge. Nephrology consult already placed by Cardiology. We will follow up with the online merchandising manager's recommendation. 3. Hypokalemia: He will be replacing with IV and p.o. potassium chloride. 4. Biventricular ICD: Per Cardiology for interrogation if necessary. 5. Hypothyroidism. We will check a TSH and titrate the dose of the levothyroxine if needed. 6. Exertional dyspnea and also worsening bilateral lower extremity edema: See #1 for details. 7. History of atrial fibrillation, on Coumadin: INR per pharmacy to a goal of 2-3 of INR. 8. He is a full code. Time spent in care on the day of admission 35 minutes, where 10 minutes was spent on chart review, and the remainder of time was spent on interview and physical examination and also on counseling. The counseling includes going over the plan of care with the patient and addressing all his questions or concerns to his satisfaction. Further plan will depend on clinical course. PAWEL HASSAN MD CC/modl /[id number] D: [id number] T: [id number] HISTORY & PHYSICAL
--- NOTE | ~2017-04-30 | OR ---
PATIENT'S NAME: GUIDO BACA [facility] AGE: 86 Y [address] ROOM: [place] [address] LOCATION: GPCU ADMIT DATE: 05/03/2017 OR/Procedure Report DISCHARGE DATE: FAMILY PHYSICIAN: Dereje Abbott MD ATTENDING PHYSICIAN: GUCCI MESSINA SURGEON: Jeremiah Bolton DO BARREL WASHER: DATE OF PROCEDURE: 05/06/2017 REFERRING PHYSICIANS: Dr. Akers and Dr. Matamoros. PREOPERATIVE DIAGNOSIS: Bilateral pleural effusions. POSTOPERATIVE DIAGNOSIS: Bilateral pleural effusions. PROCEDURES: Bilateral thoracentesis. BRIEF HISTORY: Mr. Baca is an 86-year-old white male with above-noted diagnosis. Informed consent has been obtained and an ultrasound has been performed of each pleural space to bernice for thoracentesis. DESCRIPTION OF PROCEDURE: We began on the left side. The bernice was sterilely prepped and draped. 1% lidocaine was used to infiltrate the area and the needle was placed and the catheter was advanced and the needle was withdrawn. The catheter was connected to the Vacutainer system. 800 mL of sanguinous fluid was evacuated. The patient tolerated the procedure well. The catheter was removed and a dressing was applied. The same procedure was performed on the right. We had 800 mL removed from the left and 680 mL removed from the right. Both were sanguinous in nature and it will be sent for evaluation. JEREMIAH BOLTON DO MCB/jasl /[id number] d: 05/07/17 1015 t: 05/07/17 2241, OPERATIVE SUMMARY
[~2017-04-30 17:46] MED LIST changes: -CORDARONE,PACE200 MG PO; -SENNA LAXATIVE1 EACH PO; -TOPROL XL25 MG PO; -ZAROXOLYN2.5 MG PO
[2017-04-30] MEDS ORDERED: ZAROXOLYN2.5 MG PO (19:46)
[2017-04-30 22:19] LABS: BASOPHIL % 0.3 %; EOSINOPHIL # 0.1 K/uL (0.0-0.5); EOSINOPHIL % 1.8 %; HEMATOCRIT 26.1 % (33.0-50.0); HEMOGLOBIN 8.8 g/dL (11.0-16.0); IMMATURE GRANULOCYTE % 0.5 %; LYMPHOCYTE # 0.7 K/uL (0.8-4.0); LYMPHOCYTE % 18.5 %; MCHC 33.7 gm/dL (32.0-36.5); MCV 94.9 fl (83.0-98.0); MONOCYTE # 0.6 K/uL (0.0-1.0); MONOCYTE % 16.2 %; MPV 9.8 fl (9.4-12.4); NEUTROPHIL # (ANC) 2.4 K/uL (1.4-9.0); NEUTROPHIL % 62.7 %; NRBC % 0 /100WBC (0-0.00); PLATELET COUNT 95 K/uL (150-450); RBC 2.75 M/uL (3.50-5.50); RDW-CV 14.8 % (11.9-14.6); WBC 3.8 K/uL (4.0-11.0)
[2017-04-30 22:26] LABS: INR - (THERAPEUTIC) 2.45 (0.92-1.07)
[2017-04-30 22:40] LABS: MAGNESIUM 2.5 mg/dL (1.8-2.6)
[2017-04-30 22:43] LABS: BILIRUBIN URINE NEGATIVE (NEGATIVE); BLOOD URINE 50 /UL (NEGATIVE); COLOR URINE YELLOW (YELLOW); GLUCOSE URINE NEGATIVE (NEGATIVE); KETONE URINE NEGATIVE (NEGATIVE); LEUKOCYTES URINE NEGATIVE /UL (NEGATIVE); NITRITE URINE NEGATIVE (NEGATIVE); PROTEIN URINE NEGATIVE (NEGATIVE); SPEC GRAVITY URINE 1.005 (1.003-1.035); TURBIDITY URINE CLEAR (CLEAR); UROBILINOGEN URINE NORMAL (NORMAL)
[2017-04-30 23:12] LABS: BACTERIA URINE NEGATIVE (NEGATIVE); EPITHELIAL URINE 0-2 #/HPF (NEGATIVE); RBC URINE 20-50 #/HPF (NEGATIVE); WBC URINE NEGATIVE #/HPF (NEGATIVE)
[2017-05-01 07:01] LABS: BASOPHIL % 0.3 %; EOSINOPHIL # 0.1 K/uL (0.0-0.5); EOSINOPHIL % 2.4 %; HEMATOCRIT 27.1 % (33.0-50.0); IMMATURE GRANULOCYTE % 0.5 %; LYMPHOCYTE # 0.6 K/uL (0.8-4.0); LYMPHOCYTE % 16.8 %; MCH 31.5 pg (27.0-34.0); MCHC 33.2 gm/dL (32.0-36.5); MCV 94.8 fl (83.0-98.0); MONOCYTE # 0.6 K/uL (0.0-1.0); MPV 9.8 fl (9.4-12.4); NEUTROPHIL # (ANC) 2.5 K/uL (1.4-9.0); NRBC % 0 /100WBC (0-0.00); PLATELET COUNT 96 K/uL (150-450); RBC 2.86 M/uL (3.50-5.50); WBC 3.8 K/uL (4.0-11.0)
[2017-05-01 07:16] LABS: CALCIUM 8.2 mg/dL (8.5-10.5); CREATININE 1.5 mg/dL (0.6-1.3)
[2017-05-01 07:19] LABS: ANION GAP 8.8 (10.0-19.0); POTASSIUM 2.8 mMol/L (3.7-5.1)
[2017-05-01 07:22] LABS: INR - (THERAPEUTIC) 2.4 (0.92-1.07); PROTIME 25.4 SECONDS (9.8-11.4)
[2017-05-01 15:20] LABS: CALCIUM 8.5 mg/dL (8.5-10.5); CREATININE 1.6 mg/dL (0.6-1.3); PHOSPHORUS 2.1 mg/dL (2.5-4.9)
[2017-05-01 15:23] LABS: ANION GAP 8.8 (10.0-19.0); POTASSIUM 2.8 mMol/L (3.7-5.1)
[2017-05-02 04:47] LABS: ALBUMIN 2.7 gm/dL (3.5-5.0); ANION GAP 9.1 (10.0-19.0); CALCIUM 8.3 mg/dL (8.5-10.5); CREATININE 1.4 mg/dL (0.6-1.3); PHOSPHORUS 2.8 mg/dL (2.5-4.9); POTASSIUM 3.1 mMol/L (3.7-5.1)
[2017-05-02 20:52] LABS: BLOOD UREA NITROGEN 47 mg/dL (6-24); CALCIUM 8.6 mg/dL (8.5-10.5); CHLORIDE 92 mMol/L (96-110); CO2 34 mMol/L (22-32); CPK 63 IU/L (35-332); MAGNESIUM 2.5 mg/dL (1.8-2.6)
[2017-05-02 20:55] LABS: ANION GAP 12.9 (10.0-19.0); POTASSIUM 2.9 mMol/L (3.7-5.1)
[2017-05-02 20:57] LABS: SODIUM 136 mMol/L (135-145)
[2017-05-03 02:30] LABS: INR - (THERAPEUTIC) 2.28 (0.92-1.07); PROTIME 24.1 SECONDS (9.8-11.4)
[2017-05-03 02:33] LABS: ALBUMIN 2.6 gm/dL (3.5-5.0); CALCIUM 8.1 mg/dL (8.5-10.5); CREATININE 2.4 mg/dL (0.6-1.3); PHOSPHORUS 3.1 mg/dL (2.5-4.9)
[2017-05-03 02:38] LABS: ANION GAP 12.6 (10.0-19.0); POTASSIUM 4.6 mMol/L (3.7-5.1)
[2017-05-03 05:51] LABS: ANION GAP 12.9 (10.0-19.0); CALCIUM 8.4 mg/dL (8.5-10.5); CREATININE 2.5 mg/dL (0.6-1.3); POTASSIUM 4.9 mMol/L (3.7-5.1)
[2017-05-03 10:16] LABS: BASOPHIL % 0.2 %; EOSINOPHIL % 0.1 %; HEMATOCRIT 31.8 % (33.0-50.0); HEMOGLOBIN 10.5 g/dL (11.0-16.0); IMMATURE GRANULOCYTE % 0.3 %; LYMPHOCYTE % 10.8 %; MCH 31.8 pg (27.0-34.0); MCV 96.4 fl (83.0-98.0); MONOCYTE # 1.1 K/uL (0.0-1.0); MONOCYTE % 12.2 %; MPV 10.4 fl (9.4-12.4); NEUTROPHIL # (ANC) 6.8 K/uL (1.4-9.0); NEUTROPHIL % 76.4 %; NRBC % 0 /100WBC (0-0.00); PLATELET COUNT 112 K/uL (150-450); RDW-CV 15.9 % (11.9-14.6); WBC 8.9 K/uL (4.0-11.0)
[2017-05-03 20:42] LABS: ALBUMIN 2.7 gm/dL (3.5-5.0); ANION GAP 12.6 (10.0-19.0); CREATININE 3.1 mg/dL (0.6-1.3); PHOSPHORUS 3.1 mg/dL (2.5-4.9); POTASSIUM 4.6 mMol/L (3.7-5.1)
[2017-05-04 04:47] LABS: ALBUMIN 2.6 gm/dL (3.5-5.0); ANION GAP 13.5 (10.0-19.0); CALCIUM 7.8 mg/dL (8.5-10.5); CREATININE 3.1 mg/dL (0.6-1.3); MAGNESIUM 2.5 mg/dL (1.8-2.6); PHOSPHORUS 3.2 mg/dL (2.5-4.9); POTASSIUM 4.5 mMol/L (3.7-5.1)
[2017-05-04 04:57] LABS: BASOPHIL % 0.1 %; EOSINOPHIL # 0.1 K/uL (0.0-0.5); EOSINOPHIL % 0.9 %; HEMATOCRIT 26.3 % (33.0-50.0); HEMOGLOBIN 8.7 g/dL (11.0-16.0); IMMATURE GRANULOCYTE % 0.5 %; LYMPHOCYTE # 0.9 K/uL (0.8-4.0); LYMPHOCYTE % 10.8 %; MCH 31.5 pg (27.0-34.0); MCHC 33.1 gm/dL (32.0-36.5); MCV 95.3 fl (83.0-98.0); MONOCYTE % 11.9 %; MPV 10.6 fl (9.4-12.4); NEUTROPHIL # (ANC) 6.2 K/uL (1.4-9.0); NEUTROPHIL % 75.8 %; NRBC % 0 /100WBC (0-0.00); PLATELET COUNT 112 K/uL (150-450); RBC 2.76 M/uL (3.50-5.50); RDW-CV 16.1 % (11.9-14.6); WBC 8.2 K/uL (4.0-11.0)
[2017-05-04 05:00] LABS: INR - (THERAPEUTIC) 3.22 (0.92-1.07); PROTIME 34.2 SECONDS (9.8-11.4)
[2017-05-05 05:41] LABS: HEMATOCRIT 25.5 % (33.0-50.0); HEMOGLOBIN 8.6 g/dL (11.0-16.0)
[2017-05-05 05:49] LABS: INR - (THERAPEUTIC) 4.47 (0.92-1.07); PROTIME 47.7 SECONDS (9.8-11.4)
[2017-05-05 05:54] LABS: ALBUMIN 2.5 gm/dL (3.5-5.0); CALCIUM 7.9 mg/dL (8.5-10.5); CREATININE 3.7 mg/dL (0.6-1.3); MAGNESIUM 2.6 mg/dL (1.8-2.6); PHOSPHORUS 3.8 mg/dL (2.5-4.9)
[2017-05-05 17:29] LABS: INR - (THERAPEUTIC) 3.13 (0.92-1.07); PROTIME 33.2 SECONDS (9.8-11.4)
[2017-05-06 05:25] LABS: INR - (THERAPEUTIC) 3.25 (0.92-1.07); PROTIME 34.5 SECONDS (9.8-11.4)
[2017-05-06 05:31] LABS: ALBUMIN 2.7 gm/dL (3.5-5.0); ANION GAP 11.5 (10.0-19.0); CALCIUM 7.8 mg/dL (8.5-10.5); CREATININE 3.6 mg/dL (0.6-1.3); PHOSPHORUS 4.1 mg/dL (2.5-4.9); POTASSIUM 3.5 mMol/L (3.7-5.1)
[2017-05-06 15:02] LABS: PROTIME 18.8 SECONDS (9.8-11.4)
[2017-05-06 15:03] LABS: INR - (THERAPEUTIC) 1.78 (0.92-1.07)
[2017-05-07 05:26] LABS: BASOPHIL % 0.2 %; EOSINOPHIL # 0.1 K/uL (0.0-0.5); EOSINOPHIL % 2.2 %; HEMATOCRIT 24.9 % (33.0-50.0); HEMOGLOBIN 8.3 g/dL (11.0-16.0); IMMATURE GRANULOCYTE % 0.7 %; LYMPHOCYTE # 0.7 K/uL (0.8-4.0); LYMPHOCYTE % 14.6 %; MCH 31.6 pg (27.0-34.0); MCHC 33.3 gm/dL (32.0-36.5); MCV 94.7 fl (83.0-98.0); MONOCYTE # 0.7 K/uL (0.0-1.0); MONOCYTE % 14.9 %; MPV 9.7 fl (9.4-12.4); NEUTROPHIL % 67.4 %; NRBC % 0 /100WBC (0-0.00); PLATELET COUNT 114 K/uL (150-450); RBC 2.63 M/uL (3.50-5.50); RDW-CV 15.9 % (11.9-14.6); WBC 4.5 K/uL (4.0-11.0)
[2017-05-07 05:34] LABS: ALBUMIN 2.7 gm/dL (3.5-5.0); CALCIUM 8.1 mg/dL (8.5-10.5); CREATININE 3.6 mg/dL (0.6-1.3); PHOSPHORUS 4.2 mg/dL (2.5-4.9)
[2017-05-07 05:44] LABS: PROTIME 14.4 SECONDS (9.8-11.4)
[2017-05-07 05:47] LABS: INR - (THERAPEUTIC) 1.37 (0.92-1.07)
[2017-05-07 17:53] LABS: ANION GAP 12.8 (10.0-19.0); CALCIUM 8.1 mg/dL (8.5-10.5); CREATININE 3.5 mg/dL (0.6-1.3); PHOSPHORUS 2.8 mg/dL (2.5-4.9); POTASSIUM 3.8 mMol/L (3.7-5.1)
[2017-05-08 04:12] LABS: INR - (THERAPEUTIC) 1.27 (0.92-1.07); PROTIME 13.4 SECONDS (9.8-11.4)
[2017-05-09 03:43] LABS: BASOPHIL % 0.2 %; EOSINOPHIL # 0.1 K/uL (0.0-0.5); EOSINOPHIL % 2.5 %; HEMATOCRIT 27.5 % (33.0-50.0); IMMATURE GRANULOCYTE % 0.6 %; LYMPHOCYTE # 0.7 K/uL (0.8-4.0); LYMPHOCYTE % 14.1 %; MCH 31.5 pg (27.0-34.0); MCHC 32.7 gm/dL (32.0-36.5); MCV 96.2 fl (83.0-98.0); MONOCYTE # 0.8 K/uL (0.0-1.0); MPV 9.5 fl (9.4-12.4); NEUTROPHIL # (ANC) 3.6 K/uL (1.4-9.0); NEUTROPHIL % 67.6 %; NRBC % 0 /100WBC (0-0.00); PLATELET COUNT 123 K/uL (150-450); RBC 2.86 M/uL (3.50-5.50); RDW-CV 15.9 % (11.9-14.6); WBC 5.3 K/uL (4.0-11.0)
[2017-05-09 03:53] LABS: INR - (THERAPEUTIC) 1.46 (0.92-1.07); PROTIME 15.4 SECONDS (9.8-11.4)
[2017-05-09 03:59] LABS: ALBUMIN 2.9 gm/dL (3.5-5.0); CALCIUM 8.6 mg/dL (8.5-10.5); CREATININE 3.2 mg/dL (0.6-1.3); POTASSIUM 3.4 mMol/L (3.7-5.1); TOTAL BILIRUBIN 1.3 mg/dL (0.0-1.5)
[2017-05-09 04:00] LABS: ANION GAP 11.4 (10.0-19.0)
[2017-05-10 05:19] LABS: BASOPHIL % 0.4 %; EOSINOPHIL # 0.1 K/uL (0.0-0.5); EOSINOPHIL % 2.6 %; HEMATOCRIT 28.1 % (33.0-50.0); IMMATURE GRANULOCYTE % 0.4 %; LYMPHOCYTE # 0.9 K/uL (0.8-4.0); LYMPHOCYTE % 16.7 %; MCH 30.8 pg (27.0-34.0); MCV 96.2 fl (83.0-98.0); MONOCYTE # 0.8 K/uL (0.0-1.0); MONOCYTE % 15.3 %; MPV 9.4 fl (9.4-12.4); NEUTROPHIL # (ANC) 3.3 K/uL (1.4-9.0); NEUTROPHIL % 64.6 %; NRBC % 0 /100WBC (0-0.00); PLATELET COUNT 138 K/uL (150-450); RBC 2.92 M/uL (3.50-5.50); WBC 5.1 K/uL (4.0-11.0)
[2017-05-10 05:30] LABS: PROTIME 18.6 SECONDS (9.8-11.4)
[2017-05-10 05:31] LABS: INR - (THERAPEUTIC) 1.76 (0.92-1.07)
[2017-05-10 05:34] LABS: ALBUMIN 2.8 gm/dL (3.5-5.0); CALCIUM 8.7 mg/dL (8.5-10.5); CREATININE 3.1 mg/dL (0.6-1.3); POTASSIUM 3.6 mMol/L (3.7-5.1); TOTAL BILIRUBIN 1.1 mg/dL (0.0-1.5)
[2017-05-10 05:38] LABS: ANION GAP 9.6 (10.0-19.0)
[2017-05-10] MEDS ORDERED: TOPROL XL25 MG PO (13:36)
[2017-05-10] MEDS ORDERED: ALDACTONE25 MG PO (13:37)
[2017-05-10] MEDS ORDERED: SENNA LAXATIVE1 EACH PO (13:37)
[2017-05-10] MEDS ORDERED: CORDARONE,PACE200 MG PO (13:43)
== END 2017-05-10 14:10 | disposition disaster alternative care site (69) | DRG 291 ==
LOC: GPCU 17:46 → GICU 17:46 → GPCU 17:46 → GICU 05-02 22:42 → GPCU 05-03 08:30 → GICU 05-03 08:30 → GPCU 05-06 13:58 → GICU 05-06 13:58 → GPCU 05-08 13:54
PROVIDERS: Family Medicine; Internal Medicine; Internal Medicine Nephrology; ADMIT Internal Medicine Interventional Cardiology
PROC: B246ZZZ Ultrasonography of Right and Left Heart (ICD-10-PCS; principal; 2017-05-01)
PROC: 05HM33Z Insertion of Infusion Device into Right Internal Jugular Vein, Percutaneous Approach (ICD-10-PCS; 2017-05-03)
PROC: B543ZZA Ultrasonography of Right Jugular Veins, Guidance (ICD-10-PCS; 2017-05-03)
PROC: 30233K1 Transfusion of Nonautologous Frozen Plasma into Peripheral Vein, Percutaneous Approach (ICD-10-PCS; 2017-05-05)
PROC: 0W9B3ZX Drainage of Left Pleural Cavity, Percutaneous Approach, Diagnostic (ICD-10-PCS; 2017-05-06)
PROC: 0W993ZX Drainage of Right Pleural Cavity, Percutaneous Approach, Diagnostic (ICD-10-PCS; 2017-05-06)
DX: I13.0 Hypertensive heart and chronic kidney disease with heart failure and stage 1 through stage 4 chronic kidney disease, or unspecified chronic kidney disease (principal); I46.9 Cardiac arrest, cause unspecified; J96.21 Acute and chronic respiratory failure with hypoxia; N17.9 Acute kidney failure, unspecified; J90 Pleural effusion, not elsewhere classified; D61.818 Other pancytopenia; N18.3 Chronic kidney disease, stage 3 (moderate); I50.43 Acute on chronic combined systolic (congestive) and diastolic (congestive) heart failure; E87.1 Hypo-osmolality and hyponatremia; I27.2 Other secondary pulmonary hypertension; E03.9 Hypothyroidism, unspecified; E87.6 Hypokalemia; I48.2 Chronic atrial fibrillation; R31.9 Hematuria, unspecified; Z79.01 Long term (current) use of anticoagulants; Z95.810 Presence of automatic (implantable) cardiac defibrillator; D63.1 Anemia in chronic kidney disease
CPT/HCPCS: C1887; J0171; J0282; J1250; J1644; J1650; J2370; J3475; J3480; J7030; J7040; J7050; J7060; P9017

== ENCOUNTER → 2017-04-30 | Outpatient (CLI) | payer MEDICARE ==
[~2017-04-30] MED LIST changes: +BUMEX1 MG PO; +CORDARONE,PACE200 MG PO; +COUMADIN ** IA5 MG PO; +SENNA LAXATIVE1 EACH PO; +TOPROL XL25 MG PO; +VITAMIN D1000 UNIT PO; +ZAROXOLYN2.5 MG PO; +ZESTRIL2.5 MG PO
[2017-04-30 15:56] LABS: ALBUMIN 3.1 gm/dL (3.5-5.0); CALCIUM 8.3 mg/dL (8.5-10.5); CREATININE 1.7 mg/dL (0.6-1.3); TOTAL BILIRUBIN 1.3 mg/dL (0.0-1.5); TOTAL PROTEIN 7.4 g/dL (6.0-8.4)
[2017-04-30 15:58] LABS: ANION GAP 11.9 (10.0-19.0); POTASSIUM 2.9 mMol/L (3.7-5.1)
== END | disposition disaster alternative care site (69) ==
LOC: LNHI 15:39
PROVIDERS: Internal Medicine Interventional Cardiology
DX: Z95.0 Presence of cardiac pacemaker (principal); I50.22 Chronic systolic (congestive) heart failure; I48.2 Chronic atrial fibrillation; I42.8 Other cardiomyopathies

== ENCOUNTER → 2017-05-17 | Outpatient (CLI) | payer MEDICARE ==
[~2017-05-17] MED LIST changes: +CORDARONE,PACE200 MG PO; +SENNA LAXATIVE1 EACH PO; +TOPROL XL25 MG PO; +ZAROXOLYN2.5 MG PO
[2017-05-17 16:58] LABS: ANION GAP 12.7 (10.0-19.0); CALCIUM 8.8 mg/dL (8.5-10.5); CREATININE 2.8 mg/dL (0.6-1.3); POTASSIUM 3.7 mMol/L (3.7-5.1)
== END ==
LOC: LNHI 16:29
PROVIDERS: Internal Medicine Interventional Cardiology
DX: I48.0 Paroxysmal atrial fibrillation (principal); I36.1 Nonrheumatic tricuspid (valve) insufficiency; I50.43 Acute on chronic combined systolic (congestive) and diastolic (congestive) heart failure; I27.2 Other secondary pulmonary hypertension; Z95.810 Presence of automatic (implantable) cardiac defibrillator; Z79.01 Long term (current) use of anticoagulants